=== PATIENT | female | born 1990 | race Caucasian/White ===

== ENCOUNTER 2021-04-10 23:31 | Inpatient (IN) | payer OTHER ==
[2021-04-10] MEDS ORDERED: LACTATED RINGERS 1,000 ML IV SCH (23:45)
[2021-04-10] MEDS ORDERED: OXYTOCIN 30 UNITS/500 ML NS 30 UNIT in SALINE 1 500ML.BAG IV SCH (23:45)
[2021-04-10] MEDS ORDERED: METHYLERGONOVINE 0.2 MG/ML 1 ML AMP IM PRN (23:57)
[2021-04-10] MEDS ORDERED: TERBUTALINE 1 MG/ML VIAL SQ PRN (23:57)
[2021-04-10] MEDS ORDERED: CARBOPROST TROMETHAMINE 250 MCG/ML 1 ML AMP IM PRN (23:57)
[2021-04-10] MEDS ORDERED: LIDOCAINE 0.5% (PF) 5 MG/ML (50 ML SDV) SQ PRN (23:57)
[2021-04-10] MEDS ORDERED: OXYTOCIN 10 UNIT/ML 1 ML VIAL IM PRN (23:57)
[2021-04-10] MEDS ORDERED: BUTORPHANOL 1 MG/ML 1 ML VIAL IV PRN (23:58)
[2021-04-11] MEDS: LACTATED RINGERS 1,000 ML IV SCH ×2 (00:15→02:10)
[2021-04-11 00:32] LABS: Basophils % (A) 1 %; Eosinophils # (A) 0.1 k/uL (0-0.7); Eosinophils % (A) 1 %; HCT 33.9 % (34.0-46.0); HGB 11.2 gm/dL (11.4-16.0); Lymphocytes # (A) 1.4 k/uL (1.0-4.8); Lymphocytes % (A) 17 %; MCH 29.1 pg (25.0-35.0); MCV 88.2 fL (80.0-100.0); Mean Platelet Volume 8.1; Monocytes # (A) 0.6 k/uL (0-1.0); Monocytes % (A) 7 %; Neutrophils % (A) 72 %; Platelet Count 273 k/uL (150-450); RBC 3.84 m/uL (3.80-5.40); RDW 13.6 % (11.5-15.5); WBC 8.3 k/uL (3.8-10.6)
[2021-04-11] MEDS ORDERED: fentaNYL (PF) 50 MCG/ML 5 ML AMP ONE (01:39)
[2021-04-11] MEDS ORDERED: ROPIVACAINE 5MG/ML 20ML VIAL ONE (01:39)
[2021-04-11] MEDS ORDERED: SODIUM CHLORIDE 0.9% 100 ML BAG ONE (01:39)
[2021-04-11] MEDS ORDERED: ACETAMINOPHEN TAB 325 MG TAB PO PRN (04:43)
[2021-04-11] MEDS ORDERED: HYDROcodone/APAP 5-325MG 1 EACH TAB PO PRN (04:43)
[2021-04-11] MEDS ORDERED: LANOLIN CREAM 5 GM TUBE TOPICAL PRN (04:43)
[2021-04-11] MEDS ORDERED: diphenhydrAMINE 50 MG CAP PO PRN (04:43)
[2021-04-11] MEDS ORDERED: diphenhydrAMINE 25 MG CAP PO PRN (04:43)
[2021-04-11] MEDS ORDERED: HYDROCORTISONE 2.5% RECTAL CREAM 30 GM TUBE RECTAL PRN (04:43)
[2021-04-11] MEDS ORDERED: BENZOCAINE/MENTHOL SPRAY 1 GM/SPRAY AEROSOL TOPICAL PRN (04:43)
[2021-04-11] MEDS ORDERED: HYDROcodone/APAP 7.5-325MG 1 EACH TAB PO PRN (04:43)
[2021-04-11] MEDS ORDERED: SIMETHICONE 80 MG CHEWABLE PO PRN (04:43)
[2021-04-11] MEDS ORDERED: ZOLPIDEM 5 MG TAB PO PRN (04:43)
[2021-04-11] MEDS ORDERED: diphenhydrAMINE 50 MG/ML 1 ML VIAL IVP PRN ×2 (04:43)
[2021-04-11] MEDS ORDERED: OXYTOCIN 30 UNITS/500 ML NS 30 UNIT in SALINE 1 500ML.BAG IV SCH (04:45)
--- NOTE | 2021-04-11 04:50 | P.HPOB ---
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 She carries a history of a previous section after a normal spontaneous vaginal delivery, section being performed for history of previous shoulder dystocia on first delivery. Her has otherwise been entirely uncomplicated and group B strep status is negative. On labor and delivery, all signs reassuring with a category 2 heart rate tracing. Group B strep status is negative. Obstetrical history: 3 para 2001 with 1 term vaginal delivery, located by shoulder dystocia followed by a section prophylactically. Current statistics are listed in history of present illness. EDC of 04/14/2021 was determined by last menstrual period and confirmed by 10 week ultrasound. Laboratory workup demonstrates a blood type of O+ with a negative antibody screen. Rubella status is immune. Remainder of the laboratory workups within normal limits. One hour Glucola was normal and group B strep status is negative. Gynecologic history: Unremarkable with no history of any infections to include STDs. Review of Systems Review of systems is confined to history of present illness. Past Medical History Past Medical History: No Reported History History of Any Multi-Drug Resistant Organisms: None Reported Past Surgical History: Section Past Anesthesia/Blood Transfusion Reactions: No Reported Reaction Past Psychological History: No Psychological Hx Reported Smoking Status: Never smoker Past Drug Use History: None Reported - Past Family History Mother Family Medical History: No Reported History Medications and Allergies Home Medications Medication Instructions Recorded Confirmed Type Omeprazole [PriLOSEC] 1 tab PO ONCE 04/10/21 04/10/21 History Pnv No.95/Ferrous Fum/Folic AC 1 tab PO ONCE 04/10/21 04/10/21 History [ Multivitamin Tablet] Allergies Allergy/AdvReac Type Severity Reaction Status Date / Time No Known Allergies Allergy Verified 04/10/21 23:36 Exam Vital Signs Temp Pulse Resp BP Pulse Ox 04/11/21 04:31 98.2 F 111 H 18 125/57 04/10/21 23:55 98.2 F 110 H 16 131/73 99 04/10/21 23:50 98.2 F 110 H 16 131/73 99 Intake and Output 04/10/21 04/10/21 04/11/21 14:59 22:59 06:59 Output Total 200 Balance -200 Output: Urine 100 Estimated Blood Loss 100 Other: Weight 77.111 kg In general, this is a well-developed, well-nourished white female in no acute distress. Her heart has a regular rhythm and rate without murmur. Her lungs are clear to auscultation bilaterally in all ba. Her abdomen is gravid, nondistended, has normal active bowel sounds, soft, nontender, without any palpable masses aside from the uterine fundus. Her extremities are without any cyanosis, clubbing, or significant edema and are nontender to palpation bilaterally. Digital cervical examination at the time of her admission demonstrates her to be 3 cm dilated, 70% effaced, with the vertex in presentation at -2 station. Spontaneous rupture of membranes is confirmed. Results Result Diagrams: 04/11/21 00:25 Abnormal Lab Results - Last 24 Hours (Table) 04/11/21 Range/Units 00:25 Hgb 11.2 L (11.4-16.0) gm/dL Hct 33.9 L (34.0-46.0) % Assessment and Plan (1) Spontaneous rupture of amniotic membranes Current Visit: Yes Status: Acute Code(s): CHD9080 - SNOMED Code(s): 751318949 (2) Previous section Current Visit: Yes Status: Acute Code(s): Z98.891 - HISTORY OF UTERINE SCAR FROM PREVIOUS SURGERY SNOMED Code(s): 917904288 (3) Active labor at term Current Visit: Yes Status: Acute Code(s): BCF8052 - SNOMED Code(s): 88571742 Plan: The patient is admitted for active management of labor. We have had long d iscussions regarding the risks of vaginal trial labor and have agreed to proceed with attempted . She will have close maternal and surveillance and expectant management will be practice. She is a good candidate for either IV or epidural analgesia, whichever she may choose.
[2021-04-11] MEDS: IBUPROFEN 600 MG TAB PO PRN ×3 (05:08→20:06)
--- NOTE | 2021-04-11 05:08 | P.PROBDLV ---
Vaginal Delivery Note - . 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 Her has been otherwise uncomplicated aside from the history of previous section her second delivery done secondary to a history of previous shoulder dystocia and the first delivery. Group B strep status is negative. On labor and delivery, all signs reassuring with a category 1 heart rate tracing. Spontaneous rupture of membranes is documented. On labor and delivery, she had an epidural catheter placed for analgesia. She then made progress through the active phase of labor and was found to be complete early this morning. She then pushed over the course of approximate 4-5 contractions to a normal spontaneous vaginal delivery of a viable 7 lbs. 6 oz. baby girl with Apgars of 9 at 1 minute and 9 at 5 minutes delivered in the left occiput anterior position. The placenta was delivered spontaneously, intact, and grossly normal with a grossly normal, relatively centrally inserted three-vessel cord. There was a small second- degree midline perineal laceration which was repaired in standard fashion using 3-0 chromic catgut. Estimated blood loss for the case is partially 100 mL. There were no complications. All sponge, instrument, needle counts were correct. Both mother and are resting comfortably in recovery.
[2021-04-11] MEDS: SENNOSIDES-DOCUSATE SODIUM 1 EACH TAB PO SCH ×2 (09:07→20:01)
[2021-04-12 01:36] VITALS: RESP 16
[2021-04-12] MEDS: IBUPROFEN 600 MG TAB PO PRN ×2 (05:20→14:20)
[2021-04-12 08:09] LABS: Basophils % (A) 0 %; Eosinophils # (A) 0.1 k/uL (0-0.7); Eosinophils % (A) 1 %; HCT 28.8 % (34.0-46.0); Lymphocytes # (A) 1.8 k/uL (1.0-4.8); Lymphocytes % (A) 17 %; MCH 28.1 pg (25.0-35.0); MCHC 33.1 g/dL (31.0-37.0); Mean Platelet Volume 7.9; Monocytes # (A) 0.5 k/uL (0-1.0); Monocytes % (A) 5 %; Neutrophils # (A) 7.9 k/uL (1.3-7.7); Neutrophils % (A) 75 %; Platelet Count 237 k/uL (150-450); RBC 3.39 m/uL (3.80-5.40); RDW 13.4 % (11.5-15.5); WBC 10.6 k/uL (3.8-10.6)
[2021-04-12 08:13] LABS: HGB 9.5 gm/dL (11.4-16.0)
[2021-04-12 08:30] VITALS: BP 104/68; PULSE 89; TEMP 98.1
--- NOTE | 2021-04-12 08:51 | P.DS ---
Providers Date of admission: 04/10/21 23:47 Expected date of discharge: 04/12/21 Attending physician: Jono Hernandez Primary care physician: Stated None - Discharge Diagnosis(es) (1) Spontaneous rupture of amniotic membranes Current Visit: Yes Status: Acute (2) Previous section Current Visit: Yes Status: Acute (3) Active labor at term Current Visit: Yes Status: Acute (4) Normal spontaneous vaginal delivery Current Visit: Yes Status: Acute Hospital Course: The patient is a 31-year-old 3 para 2001 admitted at 39-4/7 weeks by good dating parameters perches admitted with documented spontaneous rupture of membranes and in early labor. She has a history of a previous section and was requesting vaginal trial of labor. There was a reactive heart rate tracing, category 2 and group B strep status is negative. She had an epidural catheter placed for analgesia and progressed to the active phase of labor fairly quickly. She ultimately was found to be complete and pushed fairly quickly to a normal spontaneous vaginal delivery of a viable 7 lbs. 6 oz. baby girl with Apgars of 9 at 1 minute and 9 at 5 minutes, a successful vaginal after section. Her course was unremarkable with vital signs remaining stable and her temperature was afebrile throughout. She was deemed stable for discharge on day #1 and was discharged home to follow-up in the office in 6 weeks' time routinely. Discharge instructions included calling for any significantly increased bleeding or foul-smelling lochia, significantly increased fever abdominal pain, perineal complaints, breast complaints, or anything else that concerned her. She was additionally instructed to have nothing in the vagina for at least 6 weeks time to include intercourse. She understood her instructions and agrees to follow up as noted above. Discharge medications included continued vitamins as she has opted to breast-feed as well as [id number] analgesic pain medications as needed. Maternal blood type is O+ and rubella status is immune. Procedures: #1. Epidural analgesia #2. Normal spontaneous vaginal delivery, successful #3. Repair of perineal laceration Patient Condition at Discharge: Stable Plan - Discharge Summary New Discharge Prescriptions: No Action Pnv No.95/Ferrous Fum/Folic AC [ Multivitamin Tablet] 1 tab PO ONCE Omeprazole [PriLOSEC] 1 tab PO ONCE Discharge Medication List Omeprazole [PriLOSEC] 1 tab PO ONCE 04/10/21 [History] Pnv No.95/Ferrous Fum/Folic AC [ Multivitamin Tablet] 1 tab PO ONCE 04/10/21 [History] Follow up Appointment(s)/Referral(s): Jono Hernandez MD [STAFF PHYSICIAN] - 6 Weeks Discharge Disposition: HOME SELF-CARE
[2021-04-12] MEDS: SENNOSIDES-DOCUSATE SODIUM 1 EACH TAB PO SCH (10:41)
== END 2021-04-12 14:54 | disposition home or self-care (01) | DRG 807 ==
LOC: FBPOP 23:31 → 4FBP 23:47
PROVIDERS: ADMIT Obstetrics & Gynecology; ATTEND Obstetrics & Gynecology
PROC: 00HU33Z Insertion of Infusion Device into Spinal Canal, Percutaneous Approach (ICD-10-PCS; principal; 2021-04-11)
PROC: 10E0XZZ Delivery of Products of Conception, External Approach (ICD-10-PCS; principal; 2021-04-11)
PROC: 3E0R3BZ Introduction of Anesthetic Agent into Spinal Canal, Percutaneous Approach (ICD-10-PCS; principal; 2021-04-11)
PROC: 0KQM0ZZ Repair Perineum Muscle, Open Approach (ICD-10-PCS; principal; 2021-04-11)
DX: O34.211 Maternal care for low transverse scar from previous cesarean delivery (principal); Z37.0 Single live birth; O70.1 Second degree perineal laceration during delivery; Z3A.39 39 weeks gestation of pregnancy; Z79.899 Other long term (current) drug therapy
CPT/HCPCS: 59025; 84112; 85025; 86850; 86900; 86901; 99213